=== PATIENT | female | born 1980 | race Caucasian/White ===

== ENCOUNTER → 2024-04-17 | Outpatient (CLI) | payer BC ==
--- NOTE | 2024-04-23 04:56 | MM ---
Reason for Exam: Screening (asymptomatic). Last mammogram was performed 12 year(s) and 5 month(s) ago. Patient History: Menarche at age 12. Patient has no children. Currently using Hormonal Contraceptives, beginning at age 15 for 16 years. 12/08/2011, Benign Core Biopsy on the right side. Last menstrual period: 04/06/2024 Risk Values: Yeimy 5 year model risk: 1.3%. NCI Lifetime model risk: 11.7%. Prior Study Comparison: 11/27/2011 Bilateral Diagnostic Mammogram, [facility]. Tissue Density: The breasts are heterogeneously dense, which may obscure small masses. Findings: Analyzed By CAD. The pattern is stable. A core marker is within the right breast. There are regional punctate calcifications upper outer anterior to mid right breast. If comparison images cannot be located, diagnostic mammography would be recommended with magnification views. Left breast:No suspicious groups of microcalcifications, spiculated or lobular masses, architectural distortion or other secondary signs of malignancy are mammographically apparent. Overall Assessment: Incomplete: need additional imaging evaluation, BI-RAD 0 Management: Diagnostic Mammogram of the right breast. A negative mammogram report should not preclude additional follow up of suspicious palpable abnormalities. Patient should continue monthly self breast exam. A clinical breast exam by your physician is recommended on an annual basis and results should be correlated with mammographic findings. Note on Yeimy scores and lifetime risk: 1. A Yeimy score greater than 3% is considered moderate risk. If this is the case, consider specialist referral to assess eligibility for a risk reducing agent. 2. If overall lifetime risk for the development of breast cancer is 20% or higher, the patient may qualify for future screening with alternating mammogram and breast MRI. [facility], , 04/23/2024 4:54 AM. Electronically signed and approved by: Tanner Sinha DO
== END | disposition home or self-care (01) ==
LOC: RADMAMWWP 15:42
PROVIDERS: ATTEND Internal Medicine
DX: Z12.31 Encounter for screening mammogram for malignant neoplasm of breast (principal); R92.333 Mammographic heterogeneous density, bilateral breasts
CPT/HCPCS: 77063; 77067

== ENCOUNTER → 2024-05-01 | Outpatient (CLI) | payer BC ==
--- NOTE | 2024-05-01 09:21 | MM ---
Reason for Exam: Additional evaluation requested from abnormal screening. Last screening mammogram was performed less than 1 month ago. Patient History: Menarche at age 12. Patient has no children. Currently using Hormonal Contraceptives, beginning at age 15 for 16 years. 12/08/2011, Benign Core Biopsy on the right side. Risk Values: Yeimy 5 year model risk: 1.3%. NCI Lifetime model risk: 11.7%. Prior Study Comparison: 04/17/2024 Bilateral MG 3D screening mammo w/cad, [facility]. Tissue Density: Right: The breasts are heterogeneously dense, which may obscure small masses. Findings: Analyzed By CAD. Indication views shows improvement in regional calcifications throughout the upper outer quadrant of the right breast. Most of these are amorphous and indeterminate. A few of these more anteriorly may represent benign milk of calcium. Further tissue sampling is recommended of the amorphous calcifications. Given the larger distribution, the calcifications best seen within the target window at the time of biopsy can be pursued given that the majority show a similar morphology. Overall Assessment: Suspicious, BI-RAD 4 Management: Stereotactic Core Biopsy of the right breast. Results were given to the patient verbally at the time of exam. [facility], , 05/01/2024 9:19 AM. Electronically signed and approved by: Gabbi Bradford M.D. Radiologist
== END | disposition home or self-care (01) ==
LOC: RADMAMWWP 08:22
PROVIDERS: ATTEND Internal Medicine
DX: R92.8 Other abnormal and inconclusive findings on diagnostic imaging of breast (principal); R92.333 Mammographic heterogeneous density, bilateral breasts
CPT/HCPCS: 77061; 77065

== ENCOUNTER → 2024-06-15 | Outpatient (CLI) | payer BC ==
[2024-06-15 07:54] VITALS: BP 143/87; PULSE 93; RESP 16; TEMP 97.8
--- NOTE | 2024-06-15 09:13 | P.PCN ---
Date of Procedure: 06/15/24 Preoperative Diagnosis: Microcalcifications of concern right breast Postoperative Diagnosis: Same Procedure(s) Performed: Stereotactic core biopsy right breast Anesthesia: local Surgeon: Susan Romero Pathology: other (Breast tissue/radiograph of specimen reveals microcalcifications of concern) Condition: stable Disposition: same day Indications for Procedure: Microcalcifications of concern right breast upper outer quadrant Operative Findings: radiograph of specimen reveals microcalcifications of concern Description of Procedure: Consent the patient was taken to the stereotactic core biopsy room. She was positioned in the upright chair. A CC from above approach was utilized. A hand assembler for puller over film of the right breast was obtained. The microcalcifications of concern were identified. The microcalcifications were targeted. The breast was prepped using chlorhexidine. 20 cc of 1% lidocaine were used to anesthetize the area of concern. A 9 gauge vacuum-assisted core rotating biopsy needle was driven to the correct coordinates. A prefire film was obtained. The needle was noted to be in the correct location. The needle was fired. A post fire film was obtained. The needle was noted to be in the correct location. 13 core biopsy specimens were obtained. Radiograph of the specimens revealed the microcalcifications of concern had been adequately sampled. A secure nena Top- Hat clip was deployed. The clip appeared to be in the correct location. The patient tolerated the procedure in stable condition. Patient will be seen by Dr. Pires next week. The specimen is sent to pathology.
== END ==
LOC: WWCWWP 07:22
PROVIDERS: ATTEND Surgery
DX: Z53.9 Procedure and treatment not carried out, unspecified reason (principal)